=== PATIENT | male | born 1965 | race Caucasian/White ===

== ENCOUNTER 2021-02-02 21:08 | Emergency (ER) | payer OTHER ==
[~2021-02-02] VITALS: Ht 167.6 cm; Wt 94.0 kg
[2021-02-02] MEDS ORDERED: KETOROLAC 30MG/ML VIAL IM ONE (22:45)
[2021-02-02] MEDS ORDERED: METHOCARBAMOL 500MG TABLET PO ONE (22:45)
[2021-02-02] MEDS ORDERED: HYDROCODONE/ACETAMINOPHEN 5/325MG TABLET PO ONE (22:45)
[2021-02-03] MEDS ORDERED: METH-653 MT (00:47)
[2021-02-03] MEDS ORDERED: IBUP-2029 MT (00:47)
[2021-02-03] MEDS ORDERED: TOPUD PO (00:47)
[2021-02-03 00:52] VITALS: BP 128/86
== END 2021-02-03 00:55 | disposition home or self-care (01) ==
LOC: ER 21:08
DX: M54.5 Low back pain (principal); S50.01XA Contusion of right elbow, initial encounter; W01.0XXA Fall on same level from slipping, tripping and stumbling without subsequent striking against object, initial encounter; Y93.89 Activity, other specified; Y92.89 Other specified places as the place of occurrence of the external cause; Y99.8 Other external cause status
CPT/HCPCS: 70450; 72131; 73080; 73560; 96372; 99285; J1885